=== PATIENT | male | born 1975 | race Caucasian/White ===

== ENCOUNTER 2021-04-10 17:52 | Inpatient (IN) | payer OTHER ==
[~2021-04-10] VITALS: Ht 152.4 cm; Wt 146.2 kg
[2021-04-10 17:53] VITALS: BP 123/71
[2021-04-10 18:21] LABS: BE(vivo) 3.8 mmol/L (-2 to +3); HCO3 33.8 mmol/L (22.0-26.0); PO2 84.5 mmHg (80.0-100.0); sO2 94.7 % (92.0-98.0)
[2021-04-10 18:22] LABS: PCO2 74.2 mmHg (35.0-45.0)
[2021-04-10 18:23] LABS: pH 7.276 (7.360-7.450)
[2021-04-10 18:56] LABS: ABSOLUTE NEUTROPHILS 6.6 thou/uL (1.4-8.2); BASOPHILS 0.3 % (0.0-2.0); EOSINOPHILS 1.4 % (0.0-3.0); HEMATOCRIT 48.9 % (42.0-52.0); HEMOGLOBIN 16.4 gm/dL (14.0-18.0); LYMPHOCYTES 16.1 % (24.0-44.0); MCH 31.6 pg (26.0-34.0); MCHC 33.5 g/dL (28.0-37.0); MCV 94.1 fL (80.0-100.0); MONOCYTES 5.3 % (1.0-8.0); PLATELET COUNT 223 thou/uL (150-400); POLYS 76.9 % (36.0-66.0); RBC 5.19 mil/uL (4.50-6.00); RDW 14.1 % (10.5-14.5); WBC 8.5 thou/uL (4.0-11.0)
--- NOTE | 2021-04-10 18:59 | NUR ---
KELLIE SÁNCHEZ CALLED [phone], NO ANSWER. VOICE MESSAGE LEFT
[2021-04-10 19:03] LABS: CALCIUM 9.7 mg/dL (8.5-10.1); CREATININE 0.9 mg/dL (0.7-1.3); POTASSIUM 3.5 mmol/L (3.5-5.1)
[2021-04-10 22:01] VITALS: BP 127/96
[2021-04-10 23:45] LABS: BE(vivo) 3.6 mmol/L (-2 to +3); HCO3 33.5 mmol/L (22.0-26.0); PCO2 73.4 mmHg (35.0-45.0); PO2 230.3 mmHg (80.0-100.0); sO2 99.4 % (92.0-98.0)
[2021-04-10 23:46] LABS: pH 7.277 (7.360-7.450)
[2021-04-11 01:22] VITALS: BP 110/58
[2021-04-11] MEDS ORDERED: LORATIDINE 10 M10 M1 PO (01:47)
[2021-04-11] MEDS ORDERED: ZUPLENZ4 MG PO (01:49)
[2021-04-11] MEDS ORDERED: INDERAL80 MG PO (01:50)
[2021-04-11] MEDS ORDERED: THERAGRAN-M PR1 EAC1 PO (01:51)
[2021-04-11] MEDS ORDERED: CRESTOR5 MG PO (01:51)
[2021-04-11] MEDS ORDERED: TRIAMTERENE-HC1 EAC2 PO (01:55)
[2021-04-11] MEDS ORDERED: D3-200050 MCG PO (01:57)
[2021-04-11] MEDS ORDERED: METFORMIN HCL500 M3 PO (01:58)
[2021-04-11] MEDS ORDERED: OYSTER SHELL C500 MG PO (01:59)
[2021-04-11] MEDS ORDERED: IMITREX100 MG PO (02:00)
[2021-04-11] MEDS ORDERED: ALOE VERA (02:01)
[2021-04-11] MEDS ORDERED: NYSTATIN1000000 UN TOP (02:03)
[2021-04-11] MEDS ORDERED: ARISTADA882 MG/3.2 IM (02:04)
[2021-04-11] MEDS ORDERED: BENZONATATE200 MG PO (02:06)
[2021-04-11] MEDS ORDERED: METAMUCIL1 EAC1 PO (02:07)
[2021-04-11] MEDS ORDERED: MILK OF MA400 MG/5 M PO (02:08)
[2021-04-11] MEDS ORDERED: NAPRELAN375 MG PO ×2 (02:09→02:10)
[2021-04-11 04:15] VITALS: BP 124/76
--- NOTE | 2021-04-11 06:32 | NUR ---
ADMIT PT ADMITTED TO ROOM 364 FROM ED BEING ADMITTED FOR HYPOXIA AND BEST. PT HAD AN INJECTION OF ABILIFY AT LONG TERM HE LIVES AT YESTERDAY AND HAD A REACTION THAT CAUSED HIM TO GO HYPOXIC. HAD THE SAME INJECTION 8 WEEKS AGO AND ENDED UP INTUBATED. TO FLOOR ON BIPAP AT 14/10/100% SATS AT 99%. VSS PT A/O X4, LUNGS CLEAR ACCUCHECKS ORDERED. PT GIVEN A BOX LUNCH AND ORIENTED TO ROOM CALL LIGHT SYSTEM AND POC. ADMISSION QUESTIONAIRE AND ASSESSMENT COMPLETED TELEMETRY IN PLACE READING SR.
--- NOTE | 2021-04-11 07:14 | EKG ---
[place] [address] [facility] [place] [address] ELECTROCARDIOGRAM REPORT Name: CATALINA VILLAR Room #: 364-P ADM IN M.R.#: [id number] Admission: 04/10/21 Attend Phys: Gurmeet Mix MD Discharge: Date of : 73 Report #: [id number] [facility] ED Test Date: 2021-04-10 Test Time: 18:01:26 Pat Name: CATALINA VILLAR Department: Room: 364 Gender: M Gravel Wheeler: JAVI : 1975 Requested By: Griffin Torres Order Number: [id number] MD: Gerard Trotter Measurements Intervals [place] Rate: 69 P: 9 FL: 182 QRS: -9 QRSD: 97 T: -1 QT: 394 QTc: 422 Interpretive Statements Sinus rhythm Consider left atrial enlargement Probable anterior infarct, age indeterminate Lateral leads are also involved Compared to ECG 01/13/1991 14:01:00 Myocardial infarct finding now present Electronically Signed On 04-11-2021 7:13:47 CDT by Gerard Trotter [email or web address] <ELECTRONICALLY SIGNED> By: Gerard Trotter MD, [facility] 04/11/21712 00 00 Gerard Trotter MD, FAC /EPI
[2021-04-11 07:36] VITALS: BP 132/73
[2021-04-11 09:32] LABS: BE(vivo) 3.3 mmol/L (-2 to +3); HCO3 32.2 mmol/L (22.0-26.0); PO2 94.6 mmHg (80.0-100.0); sO2 96.3 % (92.0-98.0)
[2021-04-11 09:33] LABS: PCO2 67.5 mmHg (35.0-45.0); pH 7.297 (7.360-7.450)
--- NOTE | 2021-04-11 11:15 | NUR ---
RD consult for obesity/bmi 61.3. Hx schizophrenia, DM, prader-willi syndrome. Resides in [facility], admitted for respiratory distress following IM injection. On carb control diet order, receives metformin, ss insulin schedule. Bedside accuchecks 95-133, A1C pending. Presents low nutrition risk
[2021-04-11 13:31] LABS: CREATININE 1.2 mg/dL (0.7-1.3); POTASSIUM 3.7 mmol/L (3.5-5.1)
--- NOTE | 2021-04-11 15:02 | NUR ---
INITIAL ASSESSMENT: JANETH reviewed chart and spoke with nursing and attending physician. Pt was admitted from home due to hypoxia/BEST. Pt had an ambilify injection yesterday and was brought in by staff from his facility. Pt with hx of schizophrenia and prader willi syndrome. Pt is a [place] through [facility] [employer]. JANETH spoke with Sandra at the PA office to provide update. Esperanza Armstrong is pt's assigned employment case manager. The PA office is aware of pt's hospitalization. Pt resides at the [facility] facility. Plan is for pt to return when medically stable. JANETH spoke with Sandra at the [facility] facility. Pt is normally ambulatory and does not use any assistive devices or O2. Pt's PCP is Dr. Va Bermudez. JANETH requested guardianship ppwk to be faxed to [address] on pt's chart. JANETH is following to assist as needed with discharge planning.
[2021-04-11 15:26] VITALS: BP 120/72
--- NOTE | 2021-04-11 17:07 | NUR ---
PT WEANED EULOGIO TO 2LNC AND TAKING IN GOOD PO. PT STATED HE'S FEELING MUCH BETTER. WILL PLACE ON BIPAP WHEN SLEEPING.
[2021-04-11 19:08] VITALS: BP 115/70
[2021-04-11 23:31] VITALS: BP 141/69
[2021-04-12 00:06] LABS: GLYCOHEMOGLOBIN (HGB A1C) 6.2 % (4.8-5.6)
[2021-04-12 04:00] VITALS: BP 143/75
--- NOTE | 2021-04-12 06:35 | NUR ---
Patient making slow progress towards outcome goals. Viyal signs stable. Patient sats mid to upper 90's on 2L. Tolerated BIPAP only for 30 minutes, he does desat when asleep low 90's. Gait steady, up to BSC.
[2021-04-12 07:44] VITALS: BP 162/97
[2021-04-12] MEDS ORDERED: TOPIRAMATE 100100 MG PO (13:11)
[2021-04-12] MEDS ORDERED: PREDNISONE 10 M10 M1 PO (13:11)
[2021-04-12 13:49] VITALS: BP 162/97
--- NOTE | 2021-04-12 14:01 | NUR ---
DISCHARGE NOTE: JANETH reviewed chart and spoke with nursing and attending physician. Pt is medically stable for discharge today. JANETH spoke with long-term staff at [facility], who states they are aware of pt's discharge and will be transporting pt home this afternoon. JANETH faxed discharge ppwk to the [facility] PA office and left voice message for the in-day case briefer to notify of pt's discharge. No additional SW needs identified at this time. SW is available to assist should needs arise.
== END 2021-04-12 14:49 | disposition home or self-care (01) | DRG 189 ==
LOC: ER 17:52 → 3W 19:31 → EROBS 19:31 → 3W 04-11 01:06
PROVIDERS: Emergency Medicine; Nurse Practitioner Family; ADMIT Internal Medicine; ATTEND Internal Medicine
PROC: 5A09357 Assistance with Respiratory Ventilation, Less than 24 Consecutive Hours, Continuous Positive Airway Pressure (ICD-10-PCS; principal; 2021-04-11)
DX: J96.21 Acute and chronic respiratory failure with hypoxia (principal); Z68.44 Body mass index [BMI] 60.0-69.9, adult; Z20.822 Contact with and (suspected) exposure to COVID-19; F32.9 Major depressive disorder, single episode, unspecified; K59.00 Constipation, unspecified; E78.5 Hyperlipidemia, unspecified; G47.33 Obstructive sleep apnea (adult) (pediatric); F41.9 Anxiety disorder, unspecified; F17.210 Nicotine dependence, cigarettes, uncomplicated; E66.01 Morbid (severe) obesity due to excess calories; J96.22 Acute and chronic respiratory failure with hypercapnia; Z88.0 Allergy status to penicillin; Z88.2 Allergy status to sulfonamides; Z88.8 Allergy status to other drugs, medicaments and biological substances; Z79.899 Other long term (current) drug therapy
CPT/HCPCS: 10879